=== PATIENT | male | born 1945 | race Caucasian/White ===

== ENCOUNTER 2020-05-06 11:48 | Observation (INO) | payer MEDICARE, BC ==
--- NOTE | 2020-05-06 12:20 | ED ---
General Adult HPI - General Chief complaint: Chest Pain Stated complaint: Throat pain Time Seen by Provider: 05/06/20 11:50 Source: patient, RN notes reviewed, old records reviewed Mode of arrival: ambulatory Limitations: no limitations - History of Present Illness Initial comments: This is a 74-year-old male who presents to the emergency department with a recent past medical history significant for pleural effusion which patient had a thoracentesis at another facility. Within the last month he did have a CT and chest x-ray of his chest. Patient comes in today because he has been complaining of anterior chest pain for 2 hours. Patient denies any fever chills or cough patient denies any abdominal pain patient denies any headache patient denies lightheadedness dizziness or near syncopal episode patient denies any numbness weakness. - Related Data Home Medications Medication Instructions Recorded Confirmed Albuterol Inhaler [Ventolin Hfa 2 puff INHALATION RT-Q4H PRN 05/06/20 05/06/20 Inhaler] Albuterol Nebulized [Ventolin 2.5 mg INHALATION RT-Q4H PRN 05/06/20 05/06/20 Nebulized] Cholecalciferol [Vitamin D3 (25 1,000 unit PO DAILY 05/06/20 05/06/20 Mcg = 1000 Iu)] Escitalopram [Lexapro] 10 mg PO DAILY 05/06/20 05/06/20 Fluticasone/Umeclidin/Vilanter 1 puff INHALATION RT-DAILY 05/06/20 05/06/20 [Trelegy Ellipta 100-62.5-25] Gabapentin 450 mg PO HS 05/06/20 05/06/20 Halobetasol Propionate [Ultravate] 1 applic TOPICAL DAILY 05/06/20 05/06/20 Multivitamins, Thera [Multivitamin 1 tab PO DAILY 05/06/20 05/06/20 (formulary)] Propranolol [Inderal] 20 mg PO BID 05/06/20 05/06/20 Triamcinolone 0.1% Cream [Kenalog 1 applicatio TOPICAL DAILY PRN 05/06/20 05/06/20 0.1% Cream] traZODone HCL [Desyrel] 100 mg PO HS 05/06/20 05/06/20 Allergies Allergy/AdvReac Type Severity Reaction Status Date / Time bacitracin Allergy Rash/Hives Verified 05/06/20 13:50 [From Neosporin ([id number])] neomycin Allergy Rash/Hives Verified 05/06/20 13:50 [From Neosporin ([id number])] polymyxin B Allergy Rash/Hives Verified 05/06/20 13:50 [From Neosporin ([id number])] Review of Systems ROS Statement: Those systems with pertinent positive or pertinent negative responses have been documented in the HPI. ROS Other: All systems not noted in ROS Statement are negative. Past Medical History Past Medical History: GERD/Reflux, Pneumonia Additional Past Medical History / Comment(s): fluid in lungs, frequent ear infections, pulmonary fibrosis History of Any Multi-Drug Resistant Organisms: C-DIFF Date of last positivie culture/infection: 11/2019 Past Surgical History: Hernia Repair Additional Past Surgical History / Comment(s): lung surgery Past Psychological History: No Psychological Hx Reported Smoking Status: Never smoker Past Alcohol Use History: Occasional Past Drug Use History: None Reported General Exam - General Exam Comments Initial Comments: GENERAL: Patient is well-developed and well-nourished. Patient is nontoxic and well- hydrated and is in mild distress. ENT: Neck is soft and supple. No significant lymphadenopathy is noted. Oropharynx is clear. Moist mucous membranes. Neck has full range of motion without eliciting any pain. EYES: The sclera were anicteric and conjunctiva were pink and moist. Extraocular movements were intact and pupils were equal round and reactive to light. Eyelids were unremarkable. PULMONARY: Patient has diminished breath sounds in the right base. CARDIOVASCULAR: There is a regular rate and rhythm without any murmurs gallops or rubs. ABDOMEN: Soft and nontender with normal bowel sounds. SKIN: Skin is clear with no lesions or rashes and otherwise unremarkable. NEUROLOGIC: Patient is alert and oriented x3. Cranial nerves II through XII are grossly intact. Motor and sensory are also intact. Normal speech, volume and content. Symmetrical smile. MUSCULOSKELETAL: Normal extremities with adequate strength and full range of motion. No lower extremity swelling or edema. No calf tenderness. LYMPHATICS: No significant lymphadenopathy is noted PSYCHIATRIC: Normal psychiatric evaluation. Limitations: no limitations Course Vital Signs 05/06/20 05/06/20 05/06/20 11:52 12:13 12:20 Temperature 98 F Pulse Rate 66 68 Pulse Rate [ 65 Sales Specialist ] Respiratory 20 18 16 Rate Blood Pressure 169/77 130/81 O2 Sat by Pulse 91 L 94 L Oximetry Medical Decision Making - Medical Decision Making EKG shows normal sinus rhythm at a rate of 72 bpm TN interval is on a 58 QRS is 76 QT interval 392 QTC is 429. Patient's EKG shows no ST segment elevation or depression. Chest x-ray shows pleural effusion with some atelectasis. Computed tomography scan was done because the patient had elevated d-dimer and showed no pulmonary embolism but continued to showed a pleural effusion with some atelectasis. I spoke with Dr. Hilliard he agreed to admit the patient admitted the patient wrote admitting orders. - Lab Data Result diagrams: 05/06/20 12:11 05/06/20 12:11 Lab Results 05/06/20 05/06/20 05/06/20 Range/Units 12:11 12:11 12:11 WBC 16.3 H (3.8-10.6) k/uL RBC 5.29 (4.30-5.90) m/uL Hgb 16.1 (13.0-17.5) gm/dL Hct 50.3 (39.0-53.0) % MCV 95.0 (80.0-100.0) fL MCH 30.4 (25.0-35.0) pg MCHC 32.0 (31.0-37.0) g/dL RDW 14.2 (11.5-15.5) % Plt Count 295 (150-450) k/uL Neutrophils % 83 % Lymphocytes % 9 % Monocytes % 5 % Eosinophils % 1 % Basophils % 0 % Neutrophils # 13.6 H (1.3-7.7) k/uL Lymphocytes # 1.5 (1.0-4.8) k/uL Monocytes # 0.8 (0-1.0) k/uL Eosinophils # 0.2 (0-0.7) k/uL Basophils # 0.1 (0-0.2) k/uL PT 13.1 H (9.0-12.0) sec INR 1.3 H (<1.2) APTT 29.0 (22.0-30.0) sec D-Dimer 1.88 H (<0.60) mg/L FEU Sodium 138 (137-145) mmol/L Potassium 4.5 (3.5-5.1) mmol/L Chloride 102 (98-107) mmol/L Carbon Dioxide 27 (22-30) mmol/L Anion Gap 9 mmol/L BUN 15 (9-20) mg/dL Creatinine 0.79 (0.66-1.25) mg/dL Est GFR (CKD-EPI)AfAm >90 (>60 ml/min/1.73 sqM) Est GFR (CKD-EPI)NonAf 88 (>60 ml/min/1.73 sqM) Glucose 98 (74-99) mg/dL Calcium 9.7 (8.4-10.2) mg/dL Magnesium 1.8 (1.6-2.3) mg/dL Total Bilirubin 1.2 (0.2-1.3) mg/dL AST 32 (17-59) U/L ALT 14 (4-49) U/L Alkaline Phosphatase 118 (38-126) U/L Troponin I (0.000-0.034) ng/mL Total Protein 7.9 (6.3-8.2) g/dL Albumin 3.9 (3.5-5.0) g/dL 05/06/20 Range/Units 12:11 WBC (3.8-10.6) k/uL RBC (4.30-5.90) m/uL Hgb (13.0-17.5) gm/dL Hct (39.0-53.0) % MCV (80.0-100.0) fL MCH (25.0-35.0) pg MCHC (31.0-37.0) g/dL RDW (11.5-15.5) % Plt Count (150-450) k/uL Neutrophils % % Lymphocytes % % Monocytes % % Eosinophils % % Basophils % % Neutrophils # (1.3-7.7) k/uL Lymphocytes # (1.0-4.8) k/uL Monocytes # (0-1.0) k/uL Eosinophils # (0-0.7) k/uL Basophils # (0-0.2) k/uL PT (9.0-12.0) sec INR (<1.2) APTT (22.0-30.0) sec D-Dimer (<0.60) mg/L FEU Sodium (137-145) mmol/L Potassium (3.5-5.1) mmol/L Chloride (98-107) mmol/L Carbon Dioxide (22-30) mmol/L Anion Gap mmol/L BUN (9-20) mg/dL Creatinine (0.66-1.25) mg/dL Est GFR (CKD-EPI)AfAm (>60 ml/min/1.73 sqM) Est GFR (CKD-EPI)NonAf (>60 ml/min/1.73 sqM) Glucose (74-99) mg/dL Calcium (8.4-10.2) mg/dL Magnesium (1.6-2.3) mg/dL Total Bilirubin (0.2-1.3) mg/dL AST (17-59) U/L ALT (4-49) U/L Alkaline Phosphatase (38-126) U/L Troponin I <0.012 (0.000-0.034) ng/mL Total Protein (6.3-8.2) g/dL Albumin (3.5-5.0) g/dL Critical Care Time Critical Care Time: Yes Total Critical Care Time: 35 Disposition Clinical Impression: Unstable angina pectoris Disposition: ADMITTED IP TO THIS [facility] Referrals: Nonstaff,Physician [REFERRING] - 1-2 days Time of Disposition: 14:03
[2020-05-06 12:28] LABS: Basophils # (A) 0.1 k/uL (0-0.2); Basophils % (A) 0 %; Eosinophils # (A) 0.2 k/uL (0-0.7); Eosinophils % (A) 1 %; HCT 50.3 % (39.0-53.0); HGB 16.1 gm/dL (13.0-17.5); Lymphocytes # (A) 1.5 k/uL (1.0-4.8); Lymphocytes % (A) 9 %; MCH 30.4 pg (25.0-35.0); Mean Platelet Volume 6.8; Monocytes # (A) 0.8 k/uL (0-1.0); Monocytes % (A) 5 %; Neutrophils # (A) 13.6 k/uL (1.3-7.7); Neutrophils % (A) 83 %; Platelet Count 295 k/uL (150-450); RBC 5.29 m/uL (4.30-5.90); RDW 14.2 % (11.5-15.5); WBC 16.3 k/uL (3.8-10.6)
[2020-05-06 12:38] LABS: ALT 14 U/L (4-49); AST 32 U/L (17-59); African American GFR (CKD) >90 (>60 ml/min/1.73 sqM); Albumin 3.9 g/dL (3.5-5.0); Alkaline Phosphatase 118 U/L (38-126); Anion Gap 9 mmol/L; Blood Urea Nitrogen 15 mg/dL (9-20); Calcium 9.7 mg/dL (8.4-10.2); Carbon Dioxide 27 mmol/L (22-30); Chloride 102 mmol/L (98-107); Glucose 98 mg/dL (74-99); Magnesium 1.8 mg/dL (1.6-2.3); Non-African American GFR(CKD) 88 (>60 ml/min/1.73 sqM); Potassium 4.5 mmol/L (3.5-5.1); Sodium 138 mmol/L (137-145); Total Bilirubin 1.2 mg/dL (0.2-1.3); Total Protein 7.9 g/dL (6.3-8.2)
[2020-05-06 12:45] LABS: INR 1.3 (<1.2); Prothrombin Time 13.1 sec (9.0-12.0)
--- NOTE | 2020-05-06 12:55 | XR ---
EXAMINATION TYPE: XR chest 2V DATE OF EXAM: 05/06/2020 COMPARISON: NONE HISTORY: Chest and throat pain. TECHNIQUE: Frontal and lateral views of the chest are obtained. FINDINGS: There is cardiomegaly. The osseous structures are somewhat demineralized. Overlying EKG leads. There is reticular interstitial prominence bilaterally in the upper lungs. Reticular increased markings left lung lower lung. Right-sided volume loss with mediastinal shift. Small right pleural e ffusion with associated right basilar masslike consolidation more localized posterior on the lateral view. IMPRESSION: Cardiomegaly and right-sided volume loss. Small right pleural effusion. Right basilar ma sslike consolidation and/or atelectasis. Underlying mass is not excluded. At minimum short-term follo w-up 2 view x-ray advised.
[2020-05-06 13:12] LABS: D-Dimer 1.88 mg/L FEU (<0.60)
--- NOTE | 2020-05-06 13:53 | CT ---
EXAMINATION TYPE: CT chest angio for PE DATE OF EXAM: 05/06/2020 COMPARISON: None HISTORY: Chest pain, elevated d-dimer. CT DLP: 356.4 mGycm CONTRAST: CT chest with contrast and 3D reconstruction with MIP imaging is performed with IV Contrast, patient injected with 100 mL of Isovue 300. Contrast-enhanced CT of the chest was performed through the course of the pulmonary arteries with titi g and mediastinal window settings submitted. 3D reconstruction with MIP imaging was also performed. PULMONARY ARTERIES: The pulmonary arteries and their major tributaries are patent. I do not see rhonda dence for sizable filling defect to suggest pulmonary embolic process. LUNGS: Rounded atelectasis right lower lobe. Underlying mass difficult to exclude. Small right-sided pleural effusion. There is bilateral subpleural fibrosis. MEDIASTINUM: Thoracic aorta is of normal caliber,however, evaluation is limited given timing of the contrast bolus. If there is concern for thoracic aortic pathology consider MANDI. Correlate clinicall y . The heart is not enlarged. No evidence for mediastinal mass. No mediastinal lymph nodes greater than 1cm. HILAR STRUCTURES: No evidence for mass. No hilar lymph nodes greater than 1 cm. UPPER ABDOMEN: No significant abnormality is seen. IMPRESSION: 1. No evidence for Pulmonary embolism at this time. 2. rounded atelectasis right lower lobe with pleural effusion.
[2020-05-06] MEDS ORDERED: HEPARIN SODIUM,PORCINE 5,000 UNIT/ML 1 ML VIAL IV ONE (13:58)
[2020-05-06] MEDS ORDERED: HEPARIN SOD,PORK IN 0.45% NACL 25,000 UNIT in 0.45% NACL 1 250ML.BAG IV SCH (14:00)
[2020-05-06] MEDS ORDERED: NITROGLYCERIN SL TABS 0.4 MG TAB SUBLINGUAL PRN (14:04)
[2020-05-06] MEDS ORDERED: MORPHINE SULFATE 2 MG/ML SYRINGE IVP STA (14:36)
[2020-05-06] MEDS ORDERED: TRIAMCINOLONE 0.1% CREAM 80 GM TUBE TOPICAL PRN (15:57)
[2020-05-06] MEDS ORDERED: ALBUTEROL NEBULIZED 2.5 MG/3 ML INHALATION PRN (15:57)
[2020-05-06] MEDS ORDERED: ALPRAZolam 0.25 MG TAB PO PRN (15:59)
[2020-05-06] MEDS ORDERED: HYDROcodone/APAP 5-325MG 1 EACH TAB PO PRN (15:59)
[2020-05-06] MEDS: HYDROmorphone 0.5 MG/0.5 ML SYRINGE IVP PRN ×2 (16:55→23:30)
[2020-05-06] MEDS: ALBUTEROL NEBULIZED 2.5 MG/3 ML INHALATION SCH ×2 (18:10→18:14)
[2020-05-06] MEDS: NITROGLYCERIN OINT 1 INCH/GM PACKET TOPICAL SCH ×2 (18:12→18:44)
--- NOTE | 2020-05-06 18:47 | HP ---
HISTORY AND PHYSICAL DATE OF SERVICE: 05/06/2020 CHIEF COMPLAINT: Chest pain. HISTORY OF PRESENT ILLNESS: This 74-year-old gentleman with a past medical history of multiple medical problems, including history of GERD, history of pneumonia, history of pleural effusion, history of frequent ear infections, pulmonary fibrosis, C difficile colitis, was [facility]. The patient apparently had a pleural effusion on the right side and subsequent complications, including pneumothorax. Subsequently the family brought him back to [place] and currently the patient is staying [place] of [place] in a cottage and being followed by a primary physician in the [facility]. Today the patient had chest pain in the anterior part of the chest which was radiating to the neck, and the family was concerned and the patient was taken to [facility] and admitted for evaluation and treatment. The pain lasted for about 2 hours. There was no associated sweating, palpitations. The initial lab values included troponins that were normal. White count is 16.2. The EKG was normal. The patient also had a chest x-ray, which I reviewed personally. It showed some pleural effusion and bilateral lower lobe atelectasis. A chest CT was also done which showed no evidence of pulmonary embolism and atelectasis on the right side without pleural effusion also noted. The patient also had some mild shortness of breath. There is no history of any fever, rigor or chills. No history of headache, loss of consciousness, seizures. PAST MEDICAL HISTORY: History of pleural effusion, GERD, pneumonia, fluid in the lungs, history of Clostridium difficile. HOME MEDICATIONS: 1. Inderal 20 mg p.o. b.i.d. 2. Desyrel 100 mg at bedtime. 3. Kenalog cream. 4. Multivitamins. 5. Gabapentin. 6. Trilogy. 7. Lexapro 10 mg daily. 8. Vitamin D3 1000 daily. 9. Ventolin inhaler and nebulizer. ALLERGIES: BACITRACIN, NEOMYCIN, POLYMYXIN B FAMILY HISTORY: No history of heart disease or strokes in the family. SOCIAL HISTORY: No history of smoking. No history of alcohol intake. REVIEW OF SYSTEMS: ENT: Diminished hearing. Diminished vision. CARDIOVASCULAR SYSTEM: As mentioned earlier. RESPIRATORY SYSTEM: As mentioned earlier. GI: No nausea, vomiting. : No dysuria or retention. NERVOUS SYSTEM: No numbness, weakness. ALLERGY/IMMUNOLOGY: No asthma, hayfever. MUSCULOSKELETAL: As mentioned earlier. HEMATOLOGY/ONCOLOGY: No history of anemia. ENDOCRINE: No history of diabetes, hypothyroidism. CONSTITUTIONAL: As mentioned earlier. DERMATOLOGY: Negative. RHEUMATOLOGY: Negative. PSYCHIATRY: As mentioned earlier. PHYSICAL EXAMINATION: Patient alert and oriented x3. Pulse is 80, blood pressure 137/74, respiration 16, temperature normal, pulse ox 96% on room air. HEENT: Conjunctivae normal. NECK: No jugular venous distention. RESPIRATORY SYSTEM: Breath sounds diminished at the bases. A few scattered rhonchi and crackles. ABDOMEN: Soft, non-tender. No mass palpable. LEGS: No edema. No swelling. NERVOUS SYSTEM: No focal deficit. LABS: WBC 16.3, hemoglobin 16.1. INR 1.3. D-dimer is 1.88. ASSESSMENT: 1. Chest pain; possible unstable angina. 2. Elevated D-dimer without any evidence of pulmonary embolism. 3. Increased white count. 4. History of recent right pleural effusion and pneumothorax. 5. Bilateral atelectasis. 6. History of pneumonia. 7. History of gastroesophageal reflux disease. 8. History of ear infection. 9. History of pulmonary fibrosis. 10.History of Clostridium difficile colitis. 11.History of hernia repair. RECOMMENDATIONS AND DISCUSSION: In this 74-year-old gentleman who presented with multiple complex medical issues, we will monitor the patient closely, continue the current medications. Rule out myocardial infarction. Resume the home medications. Unstable angina protocol. I would also recommend pulmonary consultation. Prognosis guarded because of multiple complex medical issues. Further recommendations to follow. Discussed with the family, who understands and agrees. We will also perform a 2D echo with Doppler. MMODL / IJN: [id number] / MTDD
[2020-05-06] MEDS ORDERED: IPRATROPIUM 0.5 MG/2.5 ML NEBU INHALATION SCH (20:00)
[2020-05-06] MEDS: SYMBICORT 80-4.5 MCG INHALER INHALATION SCH (20:24)
[2020-05-06] MEDS: GABAPENTIN 400 MG CAP PO SCH (21:25)
[2020-05-06] MEDS: traZODone HCL 100 MG TAB PO SCH (21:42)
[2020-05-06] MEDS: PROPRANOLOL 20 MG TAB PO SCH (21:42)
[2020-05-07] MEDS: ALBUTEROL NEBULIZED 2.5 MG/3 ML INHALATION SCH ×2 (00:05→04:38)
[2020-05-07] MEDS: NITROGLYCERIN OINT 1 INCH/GM PACKET TOPICAL SCH ×2 (01:36→06:36)
[2020-05-07 06:06] LABS: Basophils # (A) 0.1 k/uL (0-0.2); Basophils % (A) 1 %; Eosinophils # (A) 0.1 k/uL (0-0.7); Eosinophils % (A) 1 %; Lymphocytes # (A) 1.7 k/uL (1.0-4.8); Lymphocytes % (A) 18 %; MCH 30.3 pg (25.0-35.0); MCHC 31.7 g/dL (31.0-37.0); MCV 95.4 fL (80.0-100.0); Mean Platelet Volume 6.9; Monocytes # (A) 0.8 k/uL (0-1.0); Monocytes % (A) 9 %; Neutrophils # (A) 6.5 k/uL (1.3-7.7); Neutrophils % (A) 70 %; Platelet Count 232 k/uL (150-450); RBC 4.61 m/uL (4.30-5.90); RDW 14.3 % (11.5-15.5); WBC 9.3 k/uL (3.8-10.6)
[2020-05-07] MEDS: PANTOPRAZOLE 40 MG TABLET PO SCH (06:36)
[2020-05-07] MEDS: HYDROmorphone 0.5 MG/0.5 ML SYRINGE IVP PRN (06:39)
[2020-05-07 06:45] LABS: African American GFR (CKD) >90 (>60 ml/min/1.73 sqM); Anion Gap 5 mmol/L; Blood Urea Nitrogen 12 mg/dL (9-20); Calcium 8.4 mg/dL (8.4-10.2); Carbon Dioxide 27 mmol/L (22-30); Chloride 104 mmol/L (98-107); Cholesterol 129 mg/dL (<200); Glucose 94 mg/dL (74-99); HDL Cholesterol 51 mg/dL (40-60); LDL Cholesterol,Calculated 68 mg/dL (0-99); Non-African American GFR(CKD) >90 (>60 ml/min/1.73 sqM); Potassium 4.1 mmol/L (3.5-5.1); Sodium 136 mmol/L (137-145); Triglycerides 49 mg/dL (<150)
[2020-05-07] MEDS: IPRATROPIUM-ALBUTEROL 3 ML NEB INHALATION SCH ×4 (08:53→18:23)
[2020-05-07] MEDS: SYMBICORT 80-4.5 MCG INHALER INHALATION SCH ×2 (08:53→18:23)
[2020-05-07] MEDS ORDERED: ASPIRIN 325 MG TAB PO SCH (09:00)
--- NOTE | 2020-05-07 10:24 | P.CRDCN ---
History of Present Illness History of present illness: HISTORY OF PRESENTING ILLNESS This is a pleasant 74-year-old male past medical history significant for skin cancer, shingles, anxiety/depression, former nicotine dependence gastroesophageal reflux disease and chronic tremor. He resides primarily in [facility] and was diagnosed in November with a right-sided pleural effusion and underwent thoracentesis. According to the patient the pathology was benign. He is here visiting his son. He developed shortness of breath and left chest pain yesterday. He states the pain is sharp and left precordial region and is precipitated by deep inspiration. The pain is not related to exertion or activity. He has some shortness of breath but not significant. He denies dizziness, palpitations, nausea, vomiting or diaphoresis. He has no prior history of coronary artery disease and does not follow with a car hostler on a regular basis. DIAGNOSTICS EKG reveals sinus mechanism with no acute ST or T-wave abnormalities. Chest xray reveals right-sided volume loss with a small right pleural effusion, right basilar masslike consolidation and/or atelectasis, mass is not entirely excluded. CTA chest negative for pulmonary embolism, round atelectasis right lower lobe with pleural effusion, underlying mass difficult to exclude, bilateral subpleural fibrosis is noted. Thoracic aorta is normal. Laboratory reviewed, WBC on admission 16.3 repeat today 9.3, hemoglobin 14, platelets 232, d-dimer 1.88, sodium 136, potassium 4.1, creatinine 0.73, magnesium 1.8, cardiac enzymes negative 3, LDL 68 and HDL 51. Current cardiac medications include propanolol 20 mg twice a day. REVIEW OF SYSTEMS At the time of my exam: CONSTITUTIONAL: Denies fever or chills. CARDIOVASCULAR: Denies chest pain, shortness of breath, orthopnea, PND or palpitations. RESPIRATORY: Denies cough. GASTROINTESTINAL: Denies abdominal pain, diarrhea, constipation, nausea or vomiting. MUSCULOSKELETAL: Denies myalgias. NEUROLOGIC: Denies numbness, tingling or weakness. ENDOCRINE: Denies fatigue, weight change, polydipsia or polyurina. GENITOURINARY: Denies burning, hematuria or urgency with micturation. HEMATOLOGIC: Denies history of anemia or bleeding. PHYSICAL EXAMINATION Blood pressure 92/47 heart rate 77 afebrile and maintaining oxygen saturation on room air. CONSTITUTIONAL: No apparent distress. HEENT: Head is normocephalic. Pupils are equal, round. Sclerae anicteric. Mucous membranes of the mouth are moist. No JVD. No carotid bruit. CHEST EXAMINATION: Lungs are clear to auscultation. No chest wall tenderness is noted on palpation or with deep breathing. HEART EXAMINATION: Regular rate and rhythm. S1, S2 heard. No murmurs, gallops or rub. ABDOMEN: Soft, nontender. Positive bowel sounds. EXTREMITIES: 2+ peripheral pulses, no lower extremity edema and no calf tenderness. NEUROLOGIC EXAMINATION: Patient is awake, alert and oriented x3. ASSESSMENT Chest pain, pleuritic. An acute coronary event has been ruled out. Leukocytosis on admission Recent history of pleural effusion status post thoracentesis PLAN An acute coronary event has been ruled out. Pain is very pleuritic in nature and likely related to underlying pulmonary pathology. Discontinue heparin infusion. Atypical for angina. Obtain 2-D echocardiogram Doppler study to establish LV function. Ongoing evaluation by pulmonary care team. Thank you kindly for this consultation. Nurse Practitioner note has been reviewed, I agree with a documented findings and plan of care. Patient was seen and examined. Past Medical History Past Medical History: Cancer, GERD/Reflux, Hearing Disorder / Deafness, Pneumonia Additional Past Medical History / Comment(s): 11/2019 Pt had R pleural effusion with thoracentesis at [facility]-did tissue biopsy-benign, pulmonary fibrosis, hiatal hernia, frequent bilateral ear infections and [place], skin cancer with removals, essential tremors, shingelles L side chest with residual L chest/flank nerve pain. History of Any Multi-Drug Resistant Organisms: C-DIFF Date of last positivie culture/infection: 11/2019 MDRO Source:: stool Past Surgical History: Hernia Repair Additional Past Surgical History / Comment(s): R inguinal hernia repair, basal cell skin cancers removed from face, colonoscopy, bilateral cataract removals/lens implants. Past Anesthesia/Blood Transfusion Reactions: No Reported Reaction Smoking Status: Former smoker - Past Family History Father Family Medical History: Congestive Heart Failure (CHF) Additional Family Medical History / Comment(s): Father of CHF at the age of 77 yrs. Mother Family Medical History: Congestive Heart Failure (CHF) Additional Family Medical History / Comment(s): Mother of CHF at the age of 84 yrs. Medications and Allergies Home Medications Medication Instructions Recorded Confirmed Type Albuterol Inhaler [Ventolin Hfa 2 puff INHALATION RT-Q4H PRN 05/06/20 05/06/20 History Inhaler] Albuterol Nebulized [Ventolin 2.5 mg INHALATION RT-Q4H PRN 05/06/20 05/06/20 History Nebulized] Cholecalciferol [Vitamin D3 (25 1,000 unit PO DAILY 05/06/20 05/06/20 History Mcg = 1000 Iu)] Escitalopram [Lexapro] 10 mg PO DAILY 05/06/20 05/06/20 History Fluticasone/Umeclidin/Vilanter 1 puff INHALATION RT-DAILY 05/06/20 05/06/20 History [Trelegy Ellipta 100-62.5-25] Gabapentin 450 mg PO HS 05/06/20 05/06/20 History Halobetasol Propionate [Ultravate] 1 applic TOPICAL DAILY 05/06/20 05/06/20 History Multivitamins, Thera [Multivitamin 1 tab PO DAILY 05/06/20 05/06/20 History (formulary)] Propranolol [Inderal] 20 mg PO BID 05/06/20 05/06/20 History Triamcinolone 0.1% Cream [Kenalog 1 applicatio TOPICAL DAILY PRN 05/06/20 05/06/20 History 0.1% Cream] traZODone HCL [Desyrel] 100 mg PO HS 05/06/20 05/06/20 History Allergies Allergy/AdvReac Type Severity Reaction Status Date / Time bacitracin Allergy Rash/Hives Verified 05/06/20 13:50 [From Neosporin ([id number])] neomycin Allergy Rash/Hives Verified 05/06/20 13:50 [From Neosporin ([id number])] polymyxin B Allergy Rash/Hives Verified 05/06/20 13:50 [From Neosporin ([id number])] Physical Exam Vitals: Vital Signs Temp Pulse Pulse Resp BP BP Pulse Ox 05/07/20 09:04 80 05/07/20 08:53 76 05/07/20 08:16 97.5 F L 77 16 92/47 91 L 05/07/20 03:00 97.6 F 65 17 97/55 98 05/07/20 00:16 82 16 05/07/20 00:08 84 16 05/06/20 21:00 97.5 F L 73 19 94/62 92 L 05/06/20 20:30 93 L 05/06/20 19:08 2 L 05/06/20 19:07 84 18 95/59 93 L 05/06/20 18:45 98.2 F 89 14 92/58 98 05/06/20 18:33 86 05/06/20 18:17 81 05/06/20 16:51 80 18 117/77 95 05/06/20 14:42 80 16 137/74 96 05/06/20 14:31 79 14 134/69 95 05/06/20 12:20 68 16 130/81 94 L 05/06/20 12:13 65 18 05/06/20 11:52 98 F 66 20 169/77 91 L Intake and Output 05/06/20 05/07/20 05/07/20 22:59 06:59 14:59 Intake Total 183.687 120 Balance 183.687 120 Intake: Intake, IV Titration 63.687 0 Amount Heparin Sod,Pork in 0.45% 63.687 0 NaCl 25,000 unit In 0.45 % NaCl 1 250ml.bag @ 12 UNITS/KG/HR 8.165 mls/hr IV .Q24H [facility] Rx#: [id number] Oral 120 120 Other: Voiding Method Toilet Toilet Toilet # Voids 1 1 Weight 68.039 kg Results 05/07/20 05:44 05/07/20 05:44 Cardiac Enzymes 05/06/20 05/06/20 05/06/20 Range/Units 12:11 12:11 14:51 AST 32 (17-59) U/L Troponin I <0.012 <0.012 (0.000-0.034) ng/mL 05/06/20 Range/Units 18:11 AST (17-59) U/L Troponin I <0.012 (0.000-0.034) ng/mL Coagulation 05/06/20 05/06/20 05/07/20 Range/Units 12:11 21:22 05:44 PT 13.1 H (9.0-12.0) sec APTT 29.0 104.8 H* 48.2 H (22.0-30.0) sec Lipids 08/04/20 Range/Units 05:44 Triglycerides 49 (<150) mg/dL Cholesterol 129 (<200) mg/dL HDL Cholesterol 51 (40-60) mg/dL CBC 05/06/20 05/07/20 Range/Units 12:11 05:44 WBC 16.3 H 9.3 (3.8-10.6) k/uL RBC 5.29 4.61 (4.30-5.90) m/uL Hgb 16.1 14.0 (13.0-17.5) gm/dL Hct 50.3 44.0 (39.0-53.0) % Plt Count 295 232 (150-450) k/uL Comprehensive Metabolic Panel 05/06/20 05/07/20 Range/Units 12:11 05:44 Sodium 138 136 L (137-145) mmol/L Potassium 4.5 4.1 (3.5-5.1) mmol/L Chloride 102 104 (98-107) mmol/L Carbon Dioxide 27 27 (22-30) mmol/L BUN 15 12 (9-20) mg/dL Creatinine 0.79 0.73 (0.66-1.25) mg/dL Glucose 98 94 (74-99) mg/dL Calcium 9.7 8.4 (8.4-10.2) mg/dL AST 32 (17-59) U/L ALT 14 (4-49) U/L Alkaline Phosphatase 118 (38-126) U/L Total Protein 7.9 (6.3-8.2) g/dL Albumin 3.9 (3.5-5.0) g/dL Current Medications Generic Name Dose Route Start Last Admin Trade Name Freq PRN Reason Stop Dose Admin Hydrocodone Bitart/Acetaminophen 1 each 05/06/20 15:59 Dearing 5-325 PO Q6HR PRN Pain Albuterol Sulfate 2.5 mg 05/06/20 15:57 Ventolin Nebulized INHALATION RT-Q4H PRN Shortness Of Breath Albuterol/Ipratropium 3 ml 05/07/20 08:00 05/07/20 08:53 Duoneb 0.5 Mg-3 Mg/3 Ml Soln INHALATION 3 ml RT-QID TRENA Administration Alprazolam 0.25 mg 05/06/20 15:59 Xanax PO TID PRN Anxiety Aspirin 325 mg 05/07/20 09:00 05/07/20 09:47 Aspirin PO 325 mg DAILY [facility] Administration Budesonide/Formoterol Fumarate 2 puff 05/06/20 20:00 05/07/20 08:53 Symbicort 80-4.5 Mcg Inhaler INHALATION 2 puff RT-BID [facility] Administration Cholecalciferol 1,000 unit 05/07/20 09:00 Vitamin D3 (25 Mcg = 1000 Iu) PO DAILY [facility] Clobetasol Propionate 1 applic 05/07/20 09:00 Temovate TOPICAL DAILY [facility] Escitalopram Oxalate 10 mg 05/07/20 09:00 Lexapro PO DAILY [facility] Gabapentin 400 mg 05/06/20 21:00 05/06/20 21:25 Neurontin PO 400 mg HS [facility] Administration Hydromorphone HCl 0.5 mg 05/06/20 15:59 05/07/20 06:39 Dilaudid IVP 0.5 mg Q6HR PRN Administration Severe Pain Heparin Sodium/Sodium Chloride 250 mls @ 8.165 mls/hr 05/06/20 14:00 05/06/20 23:19 25,000 unit/ Sodium Chloride IV 9 units/kg/hr .Q24H TRENA 6.124 mls/hr Titration Protocol 12 UNITS/KG/HR Multivitamins 1 each 05/07/20 09:00 Theragran PO DAILY [facility] Nitroglycerin 0.4 mg 05/06/20 14:04 Nitrostat SUBLINGUAL Q5M PRN Chest Pain Nitroglycerin 1 inch 05/06/20 18:00 05/07/20 06:36 Nitro-Bid Oint TOPICAL Not Given Q6HR [facility] Pantoprazole Sodium 40 mg 05/07/20 07:30 05/07/20 06:36 Protonix PO 40 mg AC-[id number] [facility] Administration Propranolol HCl 20 mg 05/06/20 21:00 05/06/20 21:42 Inderal PO 20 mg BID [facility] Administration Trazodone HCl 100 mg 05/06/20 21:00 05/06/20 21:42 Desyrel PO 100 mg HS [facility] Administration Triamcinolone Acetonide 1 applic 05/06/20 15:57 Kenalog TOPICAL DAILY PRN Rash Intake and Output 05/06/20 05/07/20 05/07/20 22:59 06:59 14:59 Intake Total 183.687 120 Balance 183.687 120 Intake: Intake, IV Titration 63.687 0 Amount Heparin Sod,Pork in 0.45% 63.687 0 NaCl 25,000 unit In 0.45 % NaCl 1 250ml.bag @ 12 UNITS/KG/HR 8.165 mls/hr IV .Q24H [facility] Rx#: [id number] Oral 120 120 Other: Voiding Method Toilet Toilet Toilet # Voids 1 1 Weight 68.039 kg 05/07/20 05:44 05/07/20 05:44
[2020-05-07 10:54] LABS: Glucose,Whole Blood 82 mg/dL (75-99)
[2020-05-07] MEDS: PROPRANOLOL 20 MG TAB PO SCH ×2 (11:21→20:21)
[2020-05-07] MEDS: CLOBETASOL PROP 0.05% CR 15GM TOPICAL SCH (11:26)
[2020-05-07] MEDS: MULTIVITAMINS, THERA 1 EACH TAB PO SCH (11:26)
[2020-05-07] MEDS: CHOLECALCIFEROL 1,000 UNIT TAB PO SCH (11:26)
[2020-05-07] MEDS: ESCITALOPRAM 10 MG TAB PO SCH (11:26)
[2020-05-07] MEDS: methylPREDNISolone SOD SUCCI 40 MG/ML 1 ML VIAL IV SCH ×2 (11:26→17:11)
[2020-05-07] MEDS: INSULIN ASPART (NovoLOG) 100 UNIT/ML VIAL SQ SCH ×3 (11:46→20:20)
--- NOTE | 2020-05-07 13:00 | ECHOF ---
Referral Reason:cp, sob MEASUREMENTS -------- HEIGHT: 175.3 cm WEIGHT: 68.0 kg BP: 92/47 RVIDd: 3.1 cm (< 3.3) IVSd: 1.0 cm (0.6 - 1.1) LVIDd: 3.6 cm (3.9 - 5.3) LVPWd: 0.9 cm (0.6 - 1.1) IVSs: 1.2 cm LVIDs: 3.1 cm LVPWs: 1.2 cm LA Diam: 2.8 cm (2.7 - 3.8) LAESV Index (A-L): 20.74 ml/m Ao Diam: 2.6 cm (2.0 - 3.7) AV Cusp: 1.4 cm (1.5 - 2.6) MV EXCURSION: 21.171 mm (> 18.000) MV EF SLOPE: 83 mm/s (70 - 150) EPSS: 0.7 cm MV E Ronn: 0.55 m/s MV DecT: 222 ms MV A Ronn: 0.66 m/s MV E/A Ratio: 0.83 AR PHT: 600 ms RAP: 5.00 mmHg RVSP: 22.99 mmHg FINDINGS -------- Sinus rhythm. This was a technically good study. LV size, wall thickness and systolic function are normal, with an EF greater than 55%. The left katalina tricular size is normal. The right ventricle is normal in size. The left atrial size is normal. The right atrial size is normal. There is mild aortic regurgitation. Mild mitral regurgitation is present. Mild tricuspid regurgitation present. Right ventricular systolic pressure is normal at < 35 mmHg. There is no pulmonic regurgitation present. The aortic root size is normal. There is no pericardial effusion. CONCLUSIONS -------- 1. LV size, wall thickness and systolic function are normal, with an EF greater than 55%. 2. The left ventricular size is normal. 3. The right ventricle is normal in size. 4. The left atrial size is normal. 5. The right atrial size is normal. 6. There is mild aortic regurgitation. 7. Mild mitral regurgitation is present. 8. Mild tricuspid regurgitation present. 9. Right ventricular systolic pressure is normal at < 35 mmHg. SHOE SEWING MACHINE OPERATOR AND TENDER: Anali Pearson RDCS
--- NOTE | 2020-05-07 14:00 | P.CNPUL ---
History of Present Illness Consult date: 05/07/20 Reason for consult: chest pain History of present illness: A 74-year-old male patient, a poor historian, who came into the hospital because of some chest pain that was thought to be of a pleuritic in nature. The patient complained of some anterior chest and he did some reference that it was related to breathing. Right now he cannot confirm that. No hemoptysis. No fever or chills. No history of any coronary artery disease. There is a history of an extensive right lung pneumonia that occurred during his stay in [place]. The patient typically lives in [place], and apparently during his stay he got very sick and he developed a right-sided pleural effusion and he needed a surgical intervention. I do see some scars along the right chest area posteriorly which I think it's related to a VATS procedure. I do not have any official doc umentation on the exact procedure or the findings. Nevertheless, the patient became quite debilitated following this episode and the patient was sent to a rehab center ultimately his son lives locally transferred him to [place] for further care. He denies having any fever chills or night sweats. No nausea. No vomiting. No abdominal pain. His workup included a chest x-ray that showed some volume loss on the right side along with possibility of a right lower lobe consolidation/atelectasis/small pleural effusion. Based on that the patient was given a CT angiogram and the CTA showed no evidence of any pulmonary embolism. There was an area of round atelectasis in the right lower lobe along with pleural thickening and some residual fluid collection and I think this is a sequelae of a previous extensive pneumonia. The EKG showed sinus mechanism without any acute abnormalities. Blood work showed a white cell count 16.3 with a hemoglobin of 9.3. D-dimer was at 1.88. Platelet was 232. Electrodes were normal. Troponin 2 has been negative. Review of Systems CONSTITUTIONAL: Denies fever or chills. CARDIOVASCULAR: Endorses chest pain, shortness of breath, orthopnea, PND or palpitations. RESPIRATORY: Denies cough. GASTROINTESTINAL: Denies abdominal pain, diarrhea, constipation, nausea or vomiting. MUSCULOSKELETAL: Denies myalgias. NEUROLOGIC: Denies numbness, tingling or weakness. ENDOCRINE: Denies fatigue, weight change, polydipsia or polyurina. GENITOURINARY: Denies burning, hematuria or urgency with micturation. HEMATOLOGIC: Denies history of anemia or bleeding. Past Medical History Past Medical History: Cancer, GERD/Reflux, Hearing Disorder / Deafness, Pneumonia Additional Past Medical History / Comment(s): 11/2019 Pt had R pleural effusion with thoracentesis at [facility]-did tissue biopsy-benign, pulmonary fibrosis, hiatal hernia, frequent bilateral ear infections and [place], skin cancer with removals, essential tremors, shingelles L side chest with residual L chest/flank nerve pain. History of Any Multi-Drug Resistant Organisms: C-DIFF Date of last positivie culture/infection: 11/2019 MDRO Source:: stool Past Surgical History: Hernia Repair Additional Past Surgical History / Comment(s): R inguinal hernia repair, basal cell skin cancers removed from face, colonoscopy, bilateral cataract removals/lens implants. Past Anesthesia/Blood Transfusion Reactions: No Reported Reaction Smoking Status: Former smoker - Past Family History Father Family Medical History: Congestive Heart Failure (CHF) Additional Family Medical History / Comment(s): Father of CHF at the age of 77 yrs. Mother Family Medical History: Congestive Heart Failure (CHF) Additional Family Medical History / Comment(s): Mother of CHF at the age of 84 yrs. Medications and Allergies Home Medications Medication Instructions Recorded Confirmed Type Albuterol Inhaler [Ventolin Hfa 2 puff INHALATION RT-Q4H PRN 05/06/20 05/06/20 History Inhaler] Albuterol Nebulized [Ventolin 2.5 mg INHALATION RT-Q4H PRN 05/06/20 05/06/20 History Nebulized] Cholecalciferol [Vitamin D3 (25 1,000 unit PO DAILY 05/06/20 05/06/20 History Mcg = 1000 Iu)] Escitalopram [Lexapro] 10 mg PO DAILY 05/06/20 05/06/20 History Fluticasone/Umeclidin/Vilanter 1 puff INHALATION RT-DAILY 05/06/20 05/06/20 History [Trelegy Ellipta 100-62.5-25] Gabapentin 450 mg PO HS 05/06/20 05/06/20 History Halobetasol Propionate [Ultravate] 1 applic TOPICAL DAILY 05/06/20 05/06/20 History Multivitamins, Thera [Multivitamin 1 tab PO DAILY 05/06/20 05/06/20 History (formulary)] Propranolol [Inderal] 20 mg PO BID 05/06/20 05/06/20 History Triamcinolone 0.1% Cream [Kenalog 1 applicatio TOPICAL DAILY PRN 05/06/20 05/06/20 History 0.1% Cream] traZODone HCL [Desyrel] 100 mg PO HS 05/06/20 05/06/20 History Allergies Allergy/AdvReac Type Severity Reaction Status Date / Time bacitracin Allergy Rash/Hives Verified 05/06/20 13:50 [From Neosporin ([id number])] neomycin Allergy Rash/Hives Verified 05/06/20 13:50 [From Neosporin ([id number])] polymyxin B Allergy Rash/Hives Verified 05/06/20 13:50 [From Neosporin ([id number])] Physical Exam Vitals: Vital Signs Temp Pulse Pulse Resp BP BP Pulse Ox 05/07/20 12:46 76 05/07/20 12:33 68 05/07/20 09:04 80 05/07/20 08:53 76 05/07/20 08:16 97.5 F L 77 16 92/47 91 L 05/07/20 03:00 97.6 F 65 17 97/55 98 05/07/20 00:16 82 16 05/07/20 00:08 84 16 05/06/20 21:00 97.5 F L 73 19 94/62 92 L 05/06/20 20:30 93 L 05/06/20 19:08 2 L 05/06/20 19:07 84 18 95/59 93 L 05/06/20 18:45 98.2 F 89 14 92/58 98 05/06/20 18:33 86 05/06/20 18:17 81 05/06/20 16:51 80 18 117/77 95 05/06/20 14:42 80 16 137/74 96 05/06/20 14:31 79 14 134/69 95 Intake and Output 05/06/20 05/07/20 05/07/20 22:59 06:59 14:59 Intake Total 183.687 120 Balance 183.687 120 Intake: Intake, IV Titration 63.687 0 Amount Heparin Sod,Pork in 0.45% 63.687 0 NaCl 25,000 unit In 0.45 % NaCl 1 250ml.bag @ 12 UNITS/KG/HR 8.165 mls/hr IV .Q24H [facility] Rx#: [id number] Oral 120 120 Other: Voiding Method Toilet Toilet Toilet # Voids 1 1 Weight 68.039 kg Gen. appearance the patient is calm comfortable likely distress currently on room air oxygen with a BMI of 22.2 Head exam was generally normal. There was no scleral icterus or corneal arcus. Mucous membranes were moist. Neck was supple and without jugular venous distension, thyromegaly, or carotid bruits. Carotids were easily palpable bilaterally. There was no adenopathy. Lungs sounds are diminished in the right lung base. No significant wheezes overall currently crackles. Cardiac exam revealed the PMI to be normally situated and sized. The rhythm was regular and no extrasystoles were noted during several minutes of auscultation. The first and second heart sounds were normal and physiologic splitting of the second heart sound was noted. There were no murmurs, rubs, clicks, or gallops. Abdominal exam revealed normal bowel sounds. The abdomen was soft, non-tender, and without masses, organomegaly, or appreciable enlargement of the abdominal aorta. Examination of the extremities revealed easily palpable radial, femoral and pedal pulses. There was no cyanosis, clubbing or edema. Examination of the skin revealed no evidence of significant rashes, suspicious appearing nevi or other concerning lesions. The patient has scar of previous surgical intervention either a chest tube insertion or a VATS procedure along the right posterior chest area. Neurologically the patient has some underlying confusion. Cranial nerves are intact. No focal neurological deficit. Results - Laboratory Findings CBC and BMP: 05/07/20 05:44 05/07/20 05:44 PT/INR, D-dimer PT 13.1 sec (9.0-12.0) H 05/06/20 12:11 INR 1.3 (<1.2) H 05/06/20 12:11 D-Dimer 1.88 mg/L FEU (<0.60) H 05/06/20 12:11 Abnormal lab findings: Abnormal Labs 05/06/20 05/06/20 05/06/20 12:11 12:11 21:22 WBC 16.3 H Neutrophils # 13.6 H PT 13.1 H INR 1.3 H APTT 104.8 H* D-Dimer 1.88 H Sodium 05/07/20 05/07/20 05:44 05:44 WBC Neutrophils # PT INR APTT 48.2 H D-Dimer Sodium 136 L - Diagnostic Findings Chest x-ray: image reviewed CT scan - chest: image reviewed Assessment and Plan Plan: 1 atypical nonspecific chest pain, not related to pulmonary embolism or pneumonia. Not related also to cardiac disease. 2 round atelectasis involving the right lower lobe posterior segment with limited amount of pleural thickening and small pleural effusion. This is most likely acutely of previous extensive complicated pneumonia with possible surgical intervention or a VATS procedure that has been done in the right hemithorax 3 leukocytosis 4 confusion, consider underlying dementia 5 history of skin cancer resected 6 essential tremors 7 history of shingles 8 impaired hearing Plan Noted for antibiotic treatment Chest PT to the right posterior chest area Provide the patient an incentive spirometer Obtain an echocardiogram Obtain records from his previous hospitalization at [facility] in [facility] Monitor white cell count Obtain a pro-calcitonin level We'll continue to follow
--- NOTE | 2020-05-07 15:40 | PN ---
PROGRESS NOTE DATE OF SERVICE: 05/07/2020 This 74-year-old gentleman who was admitted with chest pain had a fairly complicated recent medical history. Patient had right pleural effusion which was tapped with some complications, including pneumothorax, treated in [place] apparently. Currently the patient is still complaining of chest pain. Myocardial infarction ruled out. Cardiology is following the patient closely. The patient is on empiric IV steroids. Past medical history reviewed. REVIEW OF SYSTEMS: CARDIOVASCULAR SYSTEM: As mentioned earlier. RESPIRATORY SYSTEM: As mentioned earlier. GI: No nausea, vomiting. : No dysuria or retention. NERVOUS SYSTEM: No numbness, weakness. CURRENT MEDICATIONS: Reviewed. They include: 1. [place] 5 mg. 2. Ventolin. 3. DuoNeb. 4. Xanax. 5. Aspirin. 6. Symbicort. 7. Lexapro. 8. Neurontin. 9. Dilaudid. 10.NovoLog. 11.Solu-Medrol. 12.Multivitamins. 13.Protonix. 14.Inderal. 15.Kenalog. PHYSICAL EXAMINATION: Patient alert and oriented x3. Pulse 80. Blood pressure is 90/47, respirations 16, temperature 97.4, pulse ox 91% on room air. HEENT: Conjunctivae normal. NECK: No jugular venous distention. CARDIOVASCULAR SYSTEM: S1, S2 muffled. RESPIRATORY SYSTEM: Breath sounds diminished at the bases. A few scattered rhonchi and crackles. ABDOMEN: Soft, non-tender. LEGS: No edema. No swelling. NERVOUS SYSTEM: No focal deficit. LABS: CBC within normal limits. Sodium is 136. ASSESSMENT: 1. Chest pain, possible unstable angina, possibly pleuritic. 2. Possible chronic obstructive pulmonary disease, acute exacerbation. 3. Right pleural effusion. 4. Elevated D-dimer without any evidence of pulmonary embolism. 5. Increased white count. 6. History of recent right pleural effusion, pneumothorax. 7. Bilateral atelectasis. 8. History of pneumonia. 9. History of gastroesophageal reflux disease. 10.History of ear infection. 11.History of pulmonary fibrosis. 12.History of Clostridium difficile colitis. 13.History of hernia repair. RECOMMENDATIONS AND DISCUSSION: At this time I recommend to continue current medications, continue with the monitoring, symptomatic treatment. Otherwise at this time will add some IV steroids. Pulmonary consultation. Cardiology consultation. I would also recommend a procalcitonin level, UA with micro. Patient did have a history of Clostridium difficile colitis. Prognosis guarded. Further recommendations to follow. MMODL / IJN: [id number] /
[2020-05-07 16:15] LABS: Glucose,Whole Blood 143 mg/dL (75-99)
[2020-05-07 17:39] LABS: Appearance,Urine Clear (Clear); Bilirubin,Urine Negative (Negative); Blood,Urine Negative (Negative); Color,Urine Yellow; Glucose,Urine (UA) Negative (Negative); Ketones,Urine Negative (Negative); Leukocyte Esterase,Urine Negative (Negative); Nitrite,Urine Negative (Negative); PH, Urine 5.5 (5.0-8.0); Protein,Urine Negative (Negative); Urobilinogen,Urine <2.0 mg/dL (<2.0)
[2020-05-07 20:05] LABS: Glucose,Whole Blood 148 mg/dL (75-99)
[2020-05-07] MEDS: GABAPENTIN 400 MG CAP PO SCH (20:21)
[2020-05-07] MEDS: traZODone HCL 100 MG TAB PO SCH (20:21)
[2020-05-08] MEDS: methylPREDNISolone SOD SUCCI 40 MG/ML 1 ML VIAL IV SCH ×2 (00:44→08:25)
[2020-05-08 04:01] VITALS: TEMP 97.9
[2020-05-08 05:23] LABS: Basophils % (A) 0 %; Eosinophils % (A) 0 %; HCT 48.3 % (39.0-53.0); HGB 15.2 gm/dL (13.0-17.5); Lymphocytes # (A) 0.7 k/uL (1.0-4.8); Lymphocytes % (A) 6 %; MCHC 31.4 g/dL (31.0-37.0); MCV 95.6 fL (80.0-100.0); Mean Platelet Volume 6.8; Monocytes # (A) 0.1 k/uL (0-1.0); Monocytes % (A) 1 %; Neutrophils # (A) 10.9 k/uL (1.3-7.7); Neutrophils % (A) 93 %; Platelet Count 269 k/uL (150-450); RBC 5.05 m/uL (4.30-5.90); WBC 11.7 k/uL (3.8-10.6)
[2020-05-08 05:34] LABS: African American GFR (CKD) >90 (>60 ml/min/1.73 sqM); Anion Gap 6 mmol/L; Blood Urea Nitrogen 13 mg/dL (9-20); Calcium 9.2 mg/dL (8.4-10.2); Carbon Dioxide 25 mmol/L (22-30); Chloride 108 mmol/L (98-107); Glucose 141 mg/dL (74-99); Non-African American GFR(CKD) >90 (>60 ml/min/1.73 sqM); Potassium 4.1 mmol/L (3.5-5.1); Sodium 139 mmol/L (137-145)
[2020-05-08 06:42] LABS: Glucose,Whole Blood 130 mg/dL (75-99)
[2020-05-08] MEDS: PANTOPRAZOLE 40 MG TABLET PO SCH (06:44)
[2020-05-08] MEDS: INSULIN ASPART (NovoLOG) 100 UNIT/ML VIAL SQ SCH ×2 (06:44→11:49)
[2020-05-08] MEDS: IPRATROPIUM-ALBUTEROL 3 ML NEB INHALATION SCH ×2 (07:57→11:29)
[2020-05-08] MEDS: SYMBICORT 80-4.5 MCG INHALER INHALATION SCH (07:58)
[2020-05-08 08:19] VITALS: BP 116/60; RESP 14
[2020-05-08] MEDS: PROPRANOLOL 20 MG TAB PO SCH (08:25)
[2020-05-08] MEDS: MULTIVITAMINS, THERA 1 EACH TAB PO SCH (08:25)
[2020-05-08] MEDS: ESCITALOPRAM 10 MG TAB PO SCH (08:25)
[2020-05-08] MEDS: CHOLECALCIFEROL 1,000 UNIT TAB PO SCH (08:25)
[2020-05-08] MEDS: CLOBETASOL PROP 0.05% CR 15GM TOPICAL SCH (08:27)
[2020-05-08] MEDS ORDERED: ASPIRIN 81 MG PO SCH (09:00)
[2020-05-08] MEDS ORDERED: guaiFENesin 600 MG TABLET.ER PO PRN (09:23)
[2020-05-08 11:42] VITALS: PULSE 78
[2020-05-08 11:48] LABS: Glucose,Whole Blood 229 mg/dL (75-99)
--- NOTE | 2020-05-08 12:46 | P.DS ---
Providers Date of admission: 05/06/20 14:04 Expected date of discharge: 05/08/20 Attending physician: Radha Gilbert Consults: 05/06/20 14:04 Consult Physician Urgent Consulting Provider: [facility] Consult Reason/Comments: Unstable angina Do you want consulting provider notified?: Yes 05/06/20 15:58 Consult Physician Routine Consulting Provider: Bryan Pringle Consult Reason/Comments: pl effusion Do you want consulting provider notified?: Yes Primary care physician: Kristen Babcock DO Hospital Course: Final diagnosis Chest pain, possible unstable angina, possibly pleuritic Possible chronic obstructive pulmonary disease, acute exacerbation Right pleural effusion Elevated d-dimer without any evidence of pulmonary embolism Increased white count history of recent right pleural effusion, pneumothorax Bilateral atelectasis History of pneumonia History of gastroesophageal reflux disease History of urine infection History of pulmonary fibrosis History of Clostridium difficile colitis History of hernia repair Discharge disposition Patient is being discharged in a stable condition with guarded prognosis to home. Patient will follow-up with Dr. Kristen Babcock upon discharge. Patient will continue on a prednisone taper along with a short course of oral antibiotics in the form of Zithromax 500 mg daily for the next 5 days along with breathing inhalational treatments. Total time taken is greater than 35 minutes. History of present illness This is an 77-year-old male who was recently admitted with Chest pain of the left chest wall and was being closely monitored. Patient was receiving treatment in [place] previously for a right pleural effusion that was tapped and had some complications including a pneumothorax. Patient was seen and evaluated by cardiology and myocardial infarction was ruled out. Patient was seen and evaluated by pulmonary and was started on IV steroids and will continue with the taper in the outpatient setting. Patient will also continue with oral Zithromax 500 mg daily for the next 5 days along with breathing inhalational treatments. Patient also given an incentive spirometer and instructed to use at least 4 ti mes daily and 5 times every hour while awake. Patient also continues to have a cough that is dry and nonproductive. Patient to continue with Mucinex twice daily in the outpatient setting. Patient continues to have some pleuritic type chest pain noted on the left side with deep inspiration. Currently no reports of chest pain, shortness of breath, or palpitations. Patient is afebrile. No reports of nausea or vomiting and patient is tolerating diet. Patient and daughter would like to be discharged today. Patient will be discharged home. Guarded prognosis. On exam vital signs are stable. Temp is 97.9F, pulse is 76, respirations are 14, blood pressure is 116/60, oxygen saturation is 91-93% on room air. Cardio S1, S2 are muffled. Respiratory shows diminished breath sounds at the bases with No wheezing or rhonchi noted. Abdomen is soft and nontender. Nervous system shows No focal deficits. Please refer to medication reconciliation sheet for a list of medications. Patient Condition at Discharge: Stable Plan - Discharge Summary Discharge Rx Participant: No New Discharge Prescriptions: New Aspirin 81 mg PO DAILY 30 Days #30 chew Ipratropium-Albuterol Nebulize [Duoneb 0.5 mg-3 mg/3 ml Soln] 3 ml INHALATION RT-QID 30 Days #90 ml predniSONE 10 mg PO DIRECTED #30 tab Azithromycin [Zithromax] 500 mg PO DAILY 5 Days #5 tab Continue Triamcinolone 0.1% Cream [Kenalog 0.1% Cream] 1 applicatio TOPICAL DAILY PRN PRN Reason: Rash Multivitamins, Thera [Multivitamin (formulary)] 1 tab PO DAILY Cholecalciferol [Vitamin D3 (25 Mcg = 1000 Iu)] 1,000 unit PO DAILY traZODone HCL [Desyrel] 100 mg PO HS Halobetasol Propionate [Ultravate] 1 applic TOPICAL DAILY Fluticasone/Umeclidin/Vilanter [Trelegy Ellipta 100-62.5-25] 1 puff INHALATION RT-DAILY Gabapentin 450 mg PO HS Escitalopram [Lexapro] 10 mg PO DAILY Albuterol Nebulized [Ventolin Nebulized] 2.5 mg INHALATION RT-Q4H PRN PRN Reason: Shortness Of Breath Albuterol Inhaler [Ventolin Hfa Inhaler] 2 puff INHALATION RT-Q4H PRN PRN Reason: Shortness Of Breath Propranolol [Inderal] 20 mg PO BID Discharge Medication List Albuterol Inhaler [Ventolin Hfa Inhaler] 2 puff INHALATION RT-Q4H PRN 05/06/20 [History] Albuterol Nebulized [Ventolin Nebulized] 2.5 mg INHALATION RT-Q4H PRN 05/06/20 [History] Cholecalciferol [Vitamin D3 (25 Mcg = 1000 Iu)] 1,000 unit PO DAILY 05/06/20 [History] Escitalopram [Lexapro] 10 mg PO DAILY 05/06/20 [History] Fluticasone/Umeclidin/Vilanter [Trelegy Ellipta 100-62.5-25] 1 puff INHALATION RT-DAILY 05/06/20 [History] Gabapentin 450 mg PO HS 05/06/20 [History] Halobetasol Propionate [Ultravate] 1 applic TOPICAL DAILY 05/06/20 [History] Multivitamins, Thera [Multivitamin (formulary)] 1 tab PO DAILY 05/06/20 [History] Propranolol [Inderal] 20 mg PO BID 05/06/20 [History] Triamcinolone 0.1% Cream [Kenalog 0.1% Cream] 1 applicatio TOPICAL DAILY PRN 05/06/20 [History] traZODone HCL [Desyrel] 100 mg PO HS 05/06/20 [History] Aspirin 81 mg PO DAILY 30 Days #30 chew 05/08/20 [Rx] Azithromycin [Zithromax] 500 mg PO DAILY 5 Days #5 tab 05/08/20 [Rx] Ipratropium-Albuterol Nebulize [Duoneb 0.5 mg-3 mg/3 ml Soln] 3 ml INHALATION RT-QID 30 Days #90 ml 05/08/20 [Rx] predniSONE 10 mg PO DIRECTED #30 tab 05/08/20 [Rx] Follow up Appointment(s)/Referral(s): Nonstaff,Physician [REFERRING] - 1-2 days Activity/Diet/Wound Care/Special Instructions: Activity Limited until follow-up Continue current diet Continue with prednisone taper Follow-up with primary care provider upon discharge Continue with antibiotics until finished Continue using incentive spirometer at least 4 times daily. Use 5 times every hour while awake Discharge Disposition: HOME SELF-CARE
--- NOTE | 2020-05-08 12:52 | P.PN ---
Subjective Progress Note Date: 05/08/20 Principal diagnosis: Atypical nonspecific chest pain not related to pulmonary embolism or pneumonia. A 74-year-old male patient, a poor historian, who came into the hospital because of some chest pain that was thought to be of a pleuritic in nature. The patient complained of some anterior chest and he did some reference that it was related to breathing. Right now he cannot confirm that. No hemoptysis. No fever or chills. No history of any coronary artery disease. There is a history of an extensive right lung pneumonia that occurred during his stay in [place]. The tristan oliva typically lives in [place], and apparently during his stay he got very sick and he developed a right-sided pleural effusion and he needed a surgical intervention. I do see some scars along the right chest area posteriorly which I think it's related to a VATS procedure. I do not have any official documentation on the exact procedure or the findings. Nevertheless, the patient became quite debilitated following this episode and the patient was sent to a rehab center ultimately his son lives locally transferred him to [place] for further care. He denies having any fever chills or night sweats. No nausea. No vomiting. No abdominal pain. His workup included a chest x-ray that showed some volume loss on the right side along with possibility of a right lower lobe consolidation/atelectasis/small pleural effusion. Based on that the patient was given a CT angiogram and the CTA showed no evidence of any pulmonary embolism. There was an area of round atelectasis in the right lower lobe along with pleural thickening and some residual fluid collection and I think this is a sequelae of a previous extensive pneumonia. The EKG showed sinus mechanism without any acute abnormalities. Blood work showed a white cell count 16.3 with a hemoglobin of 9.3. D-dimer was at 1.88. Platelet was 232. Electrodes were normal. Troponin 2 has been negative. On 05/08/2020 patient seen in follow-up in cardiac observation unit, he states his left anterior upper chest discomfort has significantly improved, he is given some pain medications. Is on oral [place]'s and Dilaudid for breakthrough pain, he is on IV steroids. Vital signs have been, his been afebrile, denies any fever or chills, there is no suspicion for pneumonia based on his chest x-ray and CT chest. Patient states he has a mild cough usually in the morning, mostly dry, does not feel congested, usually resolves during the day, he had a recent swallow evaluation which showed no evidence of aspiration, lung sounds revealed no wheezing, there are some bibasilar crackles. No hemoptysis, he remains on azithromycin, nebulized bronchodilators, Symbicort, Mucinex was added. No acute events overnight, patient has been cleared by cardiology Objective - Vital Signs Vital signs: Vital Signs Temp 97.9 F 05/08/20 03:00 Pulse 78 05/08/20 11:42 Resp 14 05/08/20 08:16 BP 116/60 05/08/20 08:16 Pulse Ox 91 L 05/08/20 08:16 Intake & Output 05/07/20 05/08/20 05/08/20 18:59 06:59 18:59 Intake Total 400 480 Balance 400 480 Intake: Oral 400 480 Other: Voiding Method Toilet Toilet Toilet # Voids 2 2 1 - Exam GENERAL EXAM: Alert, very pleasant, thin 74-year-old white male, on room air, sitting up in the bed he is oriented 3, appears to be in no acute respiratory distress, HEAD: Normocephalic/atraumatic. EYES: Normal reaction of pupils, equal size. Conjunctiva pink, sclera white. NOSE: Clear with pink turbinates. THROAT: No erythema or exudates. NECK: No masses, no JVD, no thyroid enlargement, no adenopathy. CHEST: No chest wall deformity. Symmetrical expansion. LUNGS: Equal air entry with scattered basilar crackles, no wheezes CVS: Regular rate and rhythm, normal S1 and S2, no gallops, no murmurs, no rubs ABDOMEN: Soft, nontender. No hepatosplenomegaly, normal bowel sounds, no guarding or rigidity. EXTREMITIES: No clubbing, no edema, no cyanosis, 2+ pulses and upper and lower extremities. MUSCULOSKELETAL: Muscle strength and tone normal. SPINE: No scoliosis or deformity SKIN: No rashes. Patient has a healed scar likely from previous chest tube site on his right posterior lower chest, and surgical scar from previous lung biopsy on his lateral right chest CENTRAL NERVOUS SYSTEM: Alert and oriented -3. No focal deficits, tone is normal in all 4 extremities. PSYCHIATRIC: Alert and oriented -3. Appropriate affect. Intact judgment and insight. - Labs CBC & Chem 7: 05/08/20 04:50 05/08/20 04:50 Labs: Abnormal Lab Results - Last 24 Hours (Table) 05/07/20 05/07/20 05/07/20 Range/Units 05:44 16:14 20:03 WBC (3.8-10.6) k/uL Neutrophils # (1.3-7.7) k/uL Lymphocytes # (1.0-4.8) k/uL Chloride (98-107) mmol/L Creatinine (0.66-1.25) mg/dL Glucose (74-99) mg/dL POC Glucose (mg/dL) 143 H 148 H (75-99) mg/dL Procalcitonin 0.65 H (0.02-0.09) ng/mL 05/08/20 05/08/20 05/08/20 Range/Units 04:50 04:50 06:40 WBC 11.7 H (3.8-10.6) k/uL Neutrophils # 10.9 H (1.3-7.7) k/uL Lymphocytes # 0.7 L (1.0-4.8) k/uL Chloride 108 H (98-107) mmol/L Creatinine 0.62 L (0.66-1.25) mg/dL Glucose 141 H (74-99) mg/dL POC Glucose (mg/dL) 130 H (75-99) mg/dL Procalcitonin (0.02-0.09) ng/mL 05/08/20 Range/Units 11:44 WBC (3.8-10.6) k/uL Neutrophils # (1.3-7.7) k/uL Lymphocytes # (1.0-4.8) k/uL Chloride (98-107) mmol/L Creatinine (0.66-1.25) mg/dL Glucose (74-99) mg/dL POC Glucose (mg/dL) 229 H (75-99) mg/dL Procalcitonin (0.02-0.09) ng/mL Assessment and Plan Plan: Assessment: 1 atypical nonspecific chest pain, not related to pulmonary embolism or pneumonia. Not related also to cardiac disease. 2 round atelectasis involving the right lower lobe posterior segment with limited amount of pleural thickening and small pleural effusion. This is most likely acutely of previous extensive complicated pneumonia with possible surgical intervention or a VATS procedure that has been done in the right hemithorax 3 leukocytosis 4 confusion, consider underlying dementia 5 history of skin cancer resected 6 essential tremors 7 history of shingles 8 impaired hearing Plan: No need for antibiotics, no acute events overnight, chest pain is thought to be pleuritic in nature, it is improving, patient is maintaining stable oxygenation, provided incentive spirometer, encourage deep breathing and coughing. We'll see the patient in hospital follow-up in the to [address] Pringle. Otherwise stable for discharge home today I performed a history & physical examination of the patient and discussed their management with my nurse practitioner, Soumya De Leon. I reviewed the nurse practitioner's note and agree with the documented findings and plan of care. Lung sounds are positive for diminished breath sounds with few rales The findings and the impression was discussed with the patient. I attest to the documentation by the nurse practitioner. Time with Patient: Less than 30
[2020-05-09] MEDS ORDERED: AZITHROMYCIN 500 MG TAB PO SCH (09:00)
== END 2020-05-08 14:05 | disposition home or self-care (01) ==
LOC: EC 11:48 → 3NCARDOBS 14:04
PROVIDERS: ADMIT Hospitalist; ATTEND Hospitalist
DX: R07.89 Other chest pain (principal); J90 Pleural effusion, not elsewhere classified; J98.11 Atelectasis; R79.1 Abnormal coagulation profile; D72.829 Elevated white blood cell count, unspecified; R05 Cough; J98.4 Other disorders of lung; K21.9 Gastro-esophageal reflux disease without esophagitis; J84.10 Pulmonary fibrosis, unspecified; G25.0 Essential tremor; R41.0 Disorientation, unspecified; F41.9 Anxiety disorder, unspecified; F32.9 Major depressive disorder, single episode, unspecified; R07.81 Pleurodynia; I08.3 Combined rheumatic disorders of mitral, aortic and tricuspid valves; Z03.818 Encounter for observation for suspected exposure to other biological agents ruled out; Z87.09 Personal history of other diseases of the respiratory system; Z79.899 Other long term (current) drug therapy; Z79.51 Long term (current) use of inhaled steroids; Z79.52 Long term (current) use of systemic steroids; Z88.1 Allergy status to other antibiotic agents; Z87.01 Personal history of pneumonia (recurrent); Z86.19 Personal history of other infectious and parasitic diseases; Z98.890 Other specified postprocedural states; Z87.19 Personal history of other diseases of the digestive system; H91.90 Unspecified hearing loss, unspecified ear; Z85.828 Personal history of other malignant neoplasm of skin; Z98.41 Cataract extraction status, right eye; Z98.42 Cataract extraction status, left eye; Z96.1 Presence of intraocular lens; Z87.891 Personal history of nicotine dependence; Z82.49 Family history of ischemic heart disease and other diseases of the circulatory system
CPT/HCPCS: 93005 ×2; 96366 ×3; 96375 ×2; 96376 ×4; 96365; 99291; 36415; 94640 ×5; 93306; 85379; 83880; 80061; 80053; 80048 ×2; 83735; 84484; 85025 ×3; 85610; 85730 ×3; 81003; 84145; 71046; 71275; G0378 ×3; U0003; J1644 ×2; J2920 ×2; J2270; J1170 ×2; Q9967